=== PATIENT | male | born 2005 | race Caucasian/White ===

== ENCOUNTER 2025-11-08 06:13 | Day surgery (SDC) | payer OTHER, SELFPAY ==
[2025-11-08 07:46] VITALS: BMI 21.1
[2025-11-08 07:47] VITALS: BP 123/78; BMI 21.1
[2025-11-08] MEDS: TYLENOL 1000 MG PO (07:55)
[2025-11-08] MEDS: NORMOSOL-R/PLASMALYTE-A 1000 IV (07:56)
[2025-11-08 09:50] VITALS: BP 103/50; BP 123/78
[2025-11-08 10:00] VITALS: BP 107/53
[2025-11-08 10:35] VITALS: BP 119/74
[2025-11-08 11:00] VITALS: BP 123/77
[2025-11-08 11:30] VITALS: BP 109/71
== END 2025-11-08 11:35 | disposition home or self-care (01) ==
LOC: SDS 06:13
PROVIDERS: ATTENDING PHYSICIAN Otolaryngology
DX: J34.3 Hypertrophy of nasal turbinates (principal); J34.2 Deviated nasal septum
CPT/HCPCS: 30140; 30520